=== PATIENT | male | born 1990 ===

== ENCOUNTER 2023-02-21 03:00 | Emergency (ER) | payer OTHER ==
[~2023-02-21] VITALS: Ht 172.7 cm; Wt 74.4 kg
[2023-02-21 03:20] VITALS: O2SAT 100
[2023-02-21] MEDS ORDERED: BACITRACIN ZINC 0.9GM TP ONE (03:46)
== END 2023-02-21 05:10 | disposition home or self-care (01) ==
LOC: FSED 03:21
DX: S01.01XA Laceration without foreign body of scalp, initial encounter (principal); W01.198A Fall on same level from slipping, tripping and stumbling with subsequent striking against other object, initial encounter; Y93.01 Activity, walking, marching and hiking; Y99.0 Civilian activity done for income or pay; F17.210 Nicotine dependence, cigarettes, uncomplicated
CPT/HCPCS: 70450; 99283